=== PATIENT | male | born 1985 | race Caucasian/White ===

== ENCOUNTER 2017-11-05 14:30 | Outpatient (RCR) | payer MEDICAID, SELFPAY ==
--- NOTE | 2017-07-23 17:02 | HP.PTEVAL ---
Patient's Visit Information JONATAN LAMBERT is a 31 year old M referred to Physical Therapy by MELO MORGAN with a diagnosis of STRAIN OF MUSCLES FASCIA/TENDON THORACIC-SACRAL,LUMBAR DISC HERNIATION. Date of Evaluation: 07/23/17 Physical Therapist: Trevin Aguilar PT, - Visit Plan Frequency: 3x /Week Duration: 4 Weeks Plan: Patient benifit from PT for DLS,POSTURAL EX'S,LUMBAR FLEXABLITY ,GENERAL CONDTIONING. INTIALLY BENFIT FROM AQUATIC THERAPY THEN TRANSITION TO LAND BASED EX'S. MAY NOT BE ABLE TO TOLERATE WORK SIMULATION ACTIVITIES - Subjective Subjective: This 31 y/o [facility] pain since September 2015. 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 Patient had immediated. Grace FRASER eventually had MRI showed HNP . Patient intially had PT ,tried injections didnt help. Thus underwent s/p lumbar discectomy L5-S1 2016. Patient then had PT made back pain worse. Patient is in pain management ,and lumbar injection which decreases symptom by 50%. Patient is to start [facility]. Patient has no approval for FCE. Loaction symmtrical thoracic -lumbar symmtrical with occassionlly radicular symptoms left leg. Denies parathesia/tingling. Coughing/sneezing + with pain. Bowel/bladder giooid. Symptoms worse with bending ,lifting ,walking,standing 5 min , siiting one hour.Symptoms better with some stretches/TENS. Pain affects sleeping. Patient pain affects quality of life ADL'S and housework tasks. SOCIAL: . VOCATION: NOT WORKING - Pain Bilateral Back Pain Intensity (Out of 10): 6 Pain Intensity Range: 10 Left Lower Extremity Pain Intensity (Out of 10): 0 Pain Intensity Range: 10 - Objective POSTURE: mild foward posure guarded. GAIT: mild foward antalgic gait left side slow rosalinda. NEURO: denies parathesia /tingling ,reflexes L3-4,L4-5,L5-S1 2/3. FLEXABLITY: hams mod tight. SYMMTRIES: align. MMT: quads 4-/5,hams 4/5,hip flexion 4-/5,ankle 4/5 ,great toe extensors 4/5. LUMBAR ROM: flexion mod loss pain,extension mod/severe pain,side glides mod. PALAPTION: tender paraspinals - Special Tests L/S Slump test left side: Positive L/S Slump test right side: Positive L/S Left Straight Leg Raise: Positive L/S Right Straight Leg Raise: Positive Lumbar Standing: Flexion - Mechanical Response: No effect Lumbar Standing: Flexion - Symptoms During Testing: Increases Lumbar Standing: Flexion - Symptoms After Testing: Worse Lumbar Standing: Extension - Mechanical Response: No effect Lumbar Standing: Extension - Symptoms During Testing: Increases Lumbar Standing: Extension - Symptoms After Testing: Worse Lumbar Standing: Right Side Glides - Mechanical Response: No effect Lumbar Standing: Right Side [place] - Symptoms During Testing: No effect Lumbar Standing: Right Side [place] - Symptoms After Testing: No effect Lumbar Standing: Left Side [place] - Mechanical Response: No effect Lumbar Standing: Left Side [place] - Symptoms During Testing: No effect Lumbar Standing: Left Side [place] - Symptoms After Testing: No effect Lumbar Lying: Flexion - Mechanical Response: No effect Lumbar Lying: Flexion - Symptoms During Testing: Increases Lumbar Lying: Flexion - Symptoms After Testing: Worse - Goals Goal 1:: Independant with HEP Goal Time Frame: 4-6 Weeks Goal 2:: Independant with posture/boy mechanics Goal Time Frame: 4-6 Weeks Goal 3:: Patient decrease pain in lumbar spine by 50% or greater to improve function with walking standing and ADL'S Goal Time Frame: 4-6 Weeks Goal 4:: Patient improve lumbar ROM for function of recovery Goal Time Frame: 4-6 Weeks Goal 5:: Patient increase leg strength to 4/5 to improve gait and ADL'S Goal Time Frame: 4-6 Weeks Goal 6:: Patient be a ble to perform ADL's and light housework tasks with min limiations Goal Time Frame: 4-6 Weeks - Rehabilitation Potential Physical Therapy Diagnosis: This patient has had lumbar disectomy September 2016 with pain never improve but since pain mangment leg pain musch improved with less leg pain . Patient has impairments with decrease ROM loss,pain weakness left leg ,impared gait which impairs ADL's thus benifit from skilled PT Rehabilitation Potential: Good - Anticipated Interventions Patient/Client Instruction: Educate patient on: Condition For the Purpose of:: To decrease pain, To increase ROM, To improve muscle performance and motor function, To improve ability to perform ADL's, To increase tolerance to activity/condition/position, To improve performance and independence with ADL's, To improve ability of physical actions for home/community/work/leisure, To improve health of tissue, To decrease soft tissue restriction, To increase flexibility/ROM, To reduce risk of recurrence, To improve health and function, To prevent re-injury, To improve ability to perform tasks related to life management Therapeutic Exercise to Include: Strength training, Endurance training, Body mechanics, Postural training, Flexibilty training, Dynamic Lumbar Stabilization For the Purpose of:: To decrease pain, To increase ROM, To improve muscle performance and motor function, To improve ability to perform ADL's, To increase tolerance to activity/condition/position, To improve performance and independence with ADL's, To improve ability of physical actions for home/community/work/leisure, To improve health of tissue, To decrease soft tissue restriction, To increase flexibility/ROM, To reduce risk of recurrence, To improve health and function, To prevent re-injury, To improve ability to perform tasks related to life management TENS: Yes IF ES: Yes Cryotherapy (ice pack, ice massage): Yes Thermo therapy (hot pack): Yes Ultrasound (thermal/non thermal): Yes For the Purpose of:: To decrease pain, To decrease swelling/inflammation, To improve nutrient delivery to tissue, To increase oxygenation perfusion, To improve health of tissue, To decrease soft tissue restriction Thank you for the opportunity to evaluate your patient. For Medicare and Medicare HMO plans, please review the plan of care and approve it. It will need to be FAXED BACK to us at [phone] for Medicare purposes. Please let me know if there are questions or concerns regarding this plan of care. Physician Signature: Date:
--- NOTE | 2017-12-13 10:42 | HP.PTDCSUM_ITS ---
HP - PT D/C Summary It has been my pleasure to treat JONATAN LAMBERT under orders from MELO VILLAGRAN, for the diagnosis of STRAIN OF MUSCLES FASCIA/TENDON THORACIC-SACRAL ,LUMBAR DISC HERNIATION for a total of 18 visit(s). Discharge Date: 11/05/17 Please see the following information for a summary of their discharge status. - Subjective Subjective: Pt states that he knows he has made functional improvements since starting therapy. He still does have continued low back and just a few days ago started noticing posterior L LE symptoms. Per pt, he spoke with child welfare caseworker and will start what sounds like work reassignment training next week. Plans to contiune exercises on his own at [facility]. - Pain Bilateral Back Pain Intensity (Out of 10): 6 Left Lower Extremity Pain Intensity (Out of 10): 0 - Overall Improvement % Improvement: 40 - Objective Objective/Function: Pt reports 40% improvement in function and pain. He has met 5/6 PT goals. He has made objective improvements with ROM and strength. Lumbar ROM flexion 50%, extension 25%, B LF 50%. Gross strength: R LE 4+/5, L LE 4/5. Pt has been compliant with his PT sessions but several comments made during treatments questions his motivation level. He also sounds like he is starting work reassignment training next week. Pt will be discharged. - Goals Goal 1:: Independant with HEP Goal Progress: Goal Met Goal 2:: Independant with posture/body mechanics Goal Progress: Goal Met Goal 3:: Patient decrease pain in lumbar spine by 50% or greater to improve function with walking standing and ADL'S Goal Progress: Progressing Goal 4:: Patient improve lumbar ROM for function of recovery Goal Progress: Goal Met Goal 5:: Patient increase leg strength to 4/5 to improve gait and ADL'S Goal Progress: Goal Met Goal 6:: Patient be able to perform ADL's and light housework tasks with min limitations Goal Progress: Goal Met - Plan Plan: Discharge with [facility]CE planned for next week. - D/C Information Discharge Comments: fce If there are questions or concerns regarding this patient's physical therapy, please feel free to call me at [phone]. Thank you for the referral of this patient. Sincerely, Trevin Aguilar, PT,
== END 2017-11-05 19:00 | disposition home or self-care (01) ==
LOC: PT 14:30
DX: S39.012D Strain of muscle, fascia and tendon of lower back, subsequent encounter (principal); M51.27 Other intervertebral disc displacement, lumbosacral region; F32.1 Major depressive disorder, single episode, moderate
CPT/HCPCS: 97110; 97162; 97530

== ENCOUNTER 2017-11-08 14:22 | Outpatient (RCR) | payer OTHER, SELFPAY ==
--- NOTE | 2017-11-08 17:17 | HP.FCE ---
HP OT Functional Capacity Eval - Task Lift Floor (Occasional 1-33% of Day): 20# Floor (Frequent 34-66% of Day): 10# Floor (Constant 67-100% of Day): NA Floor PDL: Light Knee (Occasional 1-33% of Day): 20# Knee (Frequent 34-66% of Day): 10# Knee (Constant 67-100% of Day): NA Knee PDL: Light Waist (Occasional 1-33% of Day): 20# Waist (Frequent 34-66% of Day): 10# Waist (Constant 67-100% of Day): NA Waist PDL: Light Shoulder (Occasional 1-33% of Day): 20# Shoulder (Frequent 34-66% of Day): 10# Shoulder (Constant 67-100% of Day): NA Shoulder PDL: Light Overhead (Occasional 1-33% of Day): 15# Overhead (Frequent 34-66% of Day): 8# Overhead (Constant 67-100% of Day): NA Overhead PDL: Sedentary-Light - Reference Duration Sedentary Sedentary Light Light Light Medium Medium Medium Heavy Very Heavy Heavy Occasional (0-33% of day) Frequent (34-66% of day) Constant (67-100% of day) 10 # Negligible Negligible 15 # 8 # Negligible 20 # 10# Negli. 35 # 18 # 7 # 50 # 25 # 10 # 75 # 100 # >100 # 38 # 50 # >50 # 15 # 20 # >20 # - Patient Information Height: 1.75 m Weight:: 142.882 kg Hand Dominance: right - Medical History Medical History Including Restrictions: Pt states he was in good health until his low back injury September 28, 2015. 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 Patient had worked his shift and then went to ER. X-rays taken and pt states he was dx with a muscle strain. PT states about 6 months for MRI showed herniated disc at L5, S1. . Patient intially had PT, tried injections didn't help. Thus underwent s/p lumbar discectomy L5-S1 2016. Patient then had PT made back pain worse. Patient is in pain management ,and lumbar injection which decreases symptom by 50-70% depending on the day. Pt states his doctors would like to know how much pt can lift. pt states his injection lasted the longest this time. - Diagnoses Diagnoses: Strain of muscle fascia. other intervertervral disc displacment lumbo sacral. depression disorder. S/P discectomy - Symptoms Symptoms: Pain low back. Muscle tightness. Pain down left leg. fatigue. lack of sleep. irritabiilty - Pain Pain: Pt states his current back pain is 6/10. Pt states he has not taken pain medication today. Pt states he does have a tens unit that helps him mtg his pain. Pt states he does use the tens unit every day for one hour two times a day. Pt states pain increases with activity. - Work History Work History: Pt states he was working at [employer] for a few months prior to his injury. 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 Pt states job description possibly stated llift around 100#. 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 This was mostly physically demanding job. - Behavioral Behavioral: pt was cooroperative throughout the evaluation. - ADLS ADLS: Pt states he lives with his and his mother. pt states they live in a two story home with one entry step. Pt states his bedroom is on the 2nd floor and bathroom on the main floor. Pt states he does have railing on both sides going to 2nd floor. pt state he is ind. with shower, and with dressing his does need to assist pt with socks and shoes. Pt states he does assist with cooking at a modified level (sit and stand as needed). Pts does the cleaning and laundry. He does not drive due to medication. pt states he and his do the shopping together but he does use the electric scooter. Pt states his and mother perform the yard care. - Physical Examination ROM: pt demo with limited back flextion/extension, and trunk rotation. All other ROM WFL Strength: Pt demo bilateral UB MMT 4/5. Pt demo bilateral LB MMT grossly throughout 4-/5- pt stated pain with LB resistance. Right Detention Attendant Strength Average: 80.00 Right Detention Attendant Strength Percentile: 6.7% Left Detention Attendant Strength Average: 90.00 Left Detention Attendant Strength Percentile: 19% Right Lateral Pinch Average: 22.00 Right Lateral Pinch Percentile: 50% Left Lateral Pinch Average: 18.00 Left Lateral Pinch Percentile: 18% Right Tripod Pinch Average: 18.00 Right Tripod Pinch Percentile: 25% Left Tripod Pinch Average: 14.66 Left Tripod Pinch Percentile: 10% Sensation: Denies sensation loss Fine Motor: Denies fine motor deficits Balance: no loss of balance noted during the evaluation. - Non Material Handling Activities Bending: pt demo the ability to bend forward three times and then 5 times. Pt stated his low back pain increased to 8/10. pt was unble to bend forward ten times or ten times rapidly. pt can bend forward on a low occasional level. Squatting: Pt demo the ability to squat three times with external support. He reported low back pain 8/10 during task. Pt can squat on a low occasional basis. Kneeling: pt demo the ability to kneel one time with external support. Pt reported pain 7.5/10. Pt can kneel on a low occasional basis. Reaching out/up: pt demo the ability to reach out/up three times, ten times and ten times rapidly. Pt completed this while sitting. Pt can perform on a occasional basis due to pts pain at rest is 7/10. Walking: Pt demo an antalgic gait pattern and ambulated for Standing: Pt report he can stand to shower for 15 min. In clinic pt demo the ability to stand 4 min. Sitting: Pt demo the ability to sit for 35 min with no expressed or apparent discomfort. Climbing Stairs: pt ascended and decended ten steps with use of reciprical step pattern and use of both hand rails. - Dynamic Occasional Lifting Capacity Floor Lift: pt demo the ability to lift 20# maximally from this level. Knee Lift: pt demo the ability to lift 20# maximally from this level. Waist Lift: pt demo the ability to lift 20# maximally from this level. Shoulder Lift: pt demo the ability to lift 20# maximally from this level. Overhead Lift: pt demo the ability to lift 15# maximally from this level. Carrying: pt demo the ability to carry 15# for 30 feet. Comments: pt demo increase pain with lift tasks 9/10, but with sitting pain decreased to 8/10 .
--- NOTE | 2017-11-08 17:21 | HP.OTFCE_ITS ---
HP OT Functional Capacity Eval - Task Lift Floor (Occasional 1-33% of Day): 20# Floor (Frequent 34-66% of Day): 10# Floor (Constant 67-100% of Day): NA Floor PDL: Light Knee (Occasional 1-33% of Day): 20# Knee (Frequent 34-66% of Day): 10# Knee (Constant 67-100% of Day): NA Knee PDL: Light Waist (Occasional 1-33% of Day): 20# Waist (Frequent 34-66% of Day): 10# Waist (Constant 67-100% of Day): NA Waist PDL: Light Shoulder (Occasional 1-33% of Day): 20# Shoulder (Frequent 34-66% of Day): 10# Shoulder (Constant 67-100% of Day): NA Shoulder PDL: Light Overhead (Occasional 1-33% of Day): 15# Overhead (Frequent 34-66% of Day): 8# Overhead (Constant 67-100% of Day): NA Overhead PDL: Sedentary-Light - Work Activity/Posture Bending: Occasional Ability (1-33% of day) Comments: Low occasional ability Squatting: Occasional Ability (1-33% of day) Comments: Low occasional ability Kneeling: Occasional Ability (1-33% of day) Comments: Low occasional ability Reaching out: Occasional Ability (1-33% of day) Comments: due to pain level Reaching up: Occasional Ability (1-33% of day) Comments: due to pain level Sitting: Frequent Ability (34-66% of day) Comments: with shift of body weight Walking: Occasional Ability (1-33% of day) Comments: Low occasional ability Standing: Occasional Ability (1-33% of day) Comments: low occasional ability - Reference Duration Sedentary Sedentary Light Light Light Medium Medium Medium Heavy Very Heavy Heavy Occasional (0-33% of day) Frequent (34-66% of day) Constant (67-100% of day) 10 # Negligible Negligible 15 # 8 # Negligible 20 # 10# Negli. 35 # 18 # 7 # 50 # 25 # 10 # 75 # 100 # >100 # 38 # 50 # >50 # 15 # 20 # >20 # - Patient Information Height: 1.75 m Weight:: 142.882 kg Hand Dominance: right - Medical History Medical History Including Restrictions: Pt states he was in good health until his low back injury September 28, 2015. 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 Patient had worked his shift and then went to ER. X-rays taken and pt states he was dx with a muscle strain. PT states about 6 months for MRI showed herniated disc at L5, S1. . Patient intially had PT, tried injections didn't help. Thus underwent s/p lumbar discectomy L5-S1 2016. Patient then had PT made back pain worse. Patient is in pain management ,and lumbar injection which decreases symptom by 50-70% depending on the day. Pt states his doctors would like to know how much pt can lift. pt states his injection lasted the longest this time. - Diagnoses Diagnoses: Strain of muscle fascia. other intervertervral disc displacment lumbo sacral. depression disorder. S/P discectomy - Symptoms Symptoms: Pain low back. Muscle tightness. Pain down left leg. fatigue. lack of sleep. irritabiilty - Pain Pain: Pt states his current back pain is 6/10. Pt states he has not taken pain medication today. Pt states he does have a tens unit that helps him mtg his pain. Pt states he does use the tens unit every day for one hour two times a day. Pt states pain increases with activity. - Work History Work History: Pt states he was working at [employer] for a few months prior to his injury. 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 Pt states job description possibly stated llift around 100 #. 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 This was mostly physically demanding job. - Behavioral Behavioral: pt was cooroperative throughout the evaluation. - ADLS ADLS: Pt states he lives with his and his mother. pt states they live in a two story home with one entry step. Pt states his bedroom is on the 2nd floor and bathroom on the main floor. Pt states he does have railing on both sides going to 2nd floor. pt state he is ind. with shower, and with dressing his does need to assist pt with socks and shoes. Pt states he does assist with cooking at a modified level (sit and stand as needed). Pts does the cleaning and laundry. He does not drive due to medication. pt states he and his do the shopping together but he does use the electric scooter. Pt states his and mother perform the yard care. - Physical Examination ROM: pt demo with limited back flextion/extension, and trunk rotation. All other ROM WFL Strength: Pt demo bilateral UB MMT 4/5. Pt demo bilateral LB MMT grossly throughout 4-/5- pt stated pain with LB resistance. Right Fermenter Champagne Strength Average: 80.00 Right Fermenter Champagne Strength Percentile: 6.7% Left Fermenter Champagne Strength Average: 90.00 Left Fermenter Champagne Strength Percentile: 19% Right Lateral Pinch Average: 22.00 Right Lateral Pinch Percentile: 50% Left Lateral Pinch Average: 18.00 Left Lateral Pinch Percentile: 18% Right Tripod Pinch Average: 18.00 Right Tripod Pinch Percentile: 25% Left Tripod Pinch Average: 14.66 Left Tripod Pinch Percentile: 10% Sensation: Denies sensation loss Fine Motor: Denies fine motor deficits Balance: no loss of balance noted during the evaluation. - Non Material Handling Activities Bending: pt demo the ability to bend forward three times and then 5 times. Pt stated his low back pain increased to 8/10. pt was unble to bend forward ten times or ten times rapidly. pt can bend forward on a low occasional level. Squatting: Pt demo the ability to squat three times with external support. He reported low back pain 8/10 during task. Pt can squat on a low occasional basis. Kneeling: pt demo the ability to kneel one time with external support. Pt reported pain 7.5/10. Pt can kneel on a low occasional basis. Reaching out/up: pt demo the ability to reach out/up three times, ten times and ten times rapidly. Pt completed this while sitting. Pt can perform on a occasional basis due to pts pain at rest is 7/10. Walking: Pt demo an antalgic gait pattern and ambulated for 4 min and 20 seconds. pt can ambulate on a low occasional basis. Standing: Pt report he can stand to shower for 15 min. In clinic pt demo the ability to stand 4 min. pt can stand on a low occasional basis. Sitting: Pt demo the ability to sit for 35 min with no expressed or apparent discomfort. pt can sit on a frequent basis with shift of body weight. Climbing Stairs: pt ascended and decended ten steps with use of reciprical step pattern and use of both hand rails. - Dynamic Occasional Lifting Capacity Floor Lift: pt demo the ability to lift 20# maximally from this level. Knee Lift: pt demo the ability to lift 20# maximally from this level. Waist Lift: pt demo the ability to lift 20# maximally from this level. Shoulder Lift: pt demo the ability to lift 20# maximally from this level. Overhead Lift: pt demo the ability to lift 15# maximally from this level. Carrying: pt demo the ability to carry 15# for 30 feet. Comments: pt demo increase pain with lift tasks 9/10, but with sitting pain decreased to 8/10 .
== END 2017-11-08 19:00 | disposition home or self-care (01) ==
LOC: OT 14:22
DX: S39.012D Strain of muscle, fascia and tendon of lower back, subsequent encounter (principal); M51.27 Other intervertebral disc displacement, lumbosacral region; F32.1 Major depressive disorder, single episode, moderate
CPT/HCPCS: 97750

== ENCOUNTER 2019-04-19 15:30 | Outpatient (RCR) | payer OTHER, MEDICAID, SELFPAY ==
[2018-12-23 08:17] VITALS: BMI 44.3
--- NOTE | 2019-03-29 15:50 | HP.PTEVAL_ITS ---
Patient's Visit Information JONATAN LAMBERT is a 33 year old M referred to Physical Therapy by JOSE ANGEL TELLEZ with a diagnosis of INTERVERTEBRAL DISC DISPLACEMENT, LUMBAR REGION. Date of Evaluation: 03/29/19 Physical Therapist: Patricia Smith PT, Cert MDT - Visit Plan Frequency: 2-3x /Week Duration: 4-6 Weeks Plan: *RESTICTIONS - SEDINTARY WORK ONLY. NO LIFTING OVER-HEAD. NO LIFTING > 15 LBS. AQUATIC THERAPY FOR PAIN RELEIF, POSTURE CORRECTION/STRENGTHENING, INSTRUCTION IN APPROPRIATE BODY MECHANICS AND ACTIVITY MODIFICATIONS. DLS STARTING WITH A NEUTRAL SPINE PROGRESSING ROM TOLERATED. JAKE LE ROM, STRETCHING AND STRENGTHENING. HEP INSTRUCTION. - Subjective Findings: Work/Leisure: UNEMPLOYEED. OFF WORK SINCE JUN 2018 DUE TO BACK PAIN. Disability: NO BUT HAS APPLIED. Present symptoms: RIGHT BACK, JAKE LOW BACK, RIGHT THIGH, LEG, AND ANKLE PAIN. LLE NUMBNESS AND TINGLING. CONSTANT. Present since: 3 YEARS AGO - 2016. Pain Scale: WORST 8/10, LEAST 3/10. Currently: 5/10. 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 Symptoms at onset: MID TO LOW BACK PAIN. Worse: ANY MVMT OR ACTIVITY. SITTING UP. DAILY THINGS. Better: THE NEW MEDICATION - MEDICAL CANABIS. Disturbed sleep: YES. Previous history/Previous treatment: NO BACK PROBLEMS PRIOR TO 2016. SINCE 2016 HAS TRIED MEDICATIONS, PHYSICAL THERAPY NUMEROUS TIMES, CATHY'S NUMBEROUS TIMES, SURGERY 2017 - MICRODISCECTOMY - DR. CARDONA. Coughing/sneezing/straining: POSITIVE. Gait: SOMETIMES HAS TO USE A CANE BUT NOT MUCH LATELY. PUTTING LEFT LEG DOWN CAUSES SHOOTING PAIN TO OR FROM BACK AND CAUSES LIMP. I CAN'T WALK TOO FAR OR TOO FAST. Difficulty initiating urinatin: NO. Accidents: NO OTHERS. Unexplained weight loss: NO. Imaging: RECENT LUMBAR MRI - NOTHING NEW. RECENT NCT - NORMAL. PAPERWORK FROM PAIN MGMT STATES - MILD DISC OSTEOPHYTIC BULGE AT L5S1 WITHOUT SIGNIFICANT PROTRUSION. PMH: UNREMARKABLE. OTHER: [facility] HERE AT LAST YEAR. - Objective Sitting/Standing Posture: POOR. SLOUCHED WITH FORWARD HEAD AND ROUNDED SHOULDERS. Lordosis: NORMAL. Lateral shift: NO. Relevant shift: N/A. Active Correction of posture: BETTER. Other Observations: INDEP GAIT INTO PT WITHOUT LOB AND WITHOUT ASSISTIVE DEVICE. DECREASED CADANCE AND MILD LIMP ON LLE. ABLE TO TRANSFER FROM SIT TO STAND WITHOUT UE ASSIST. Motor deficit: RIGHT LE 5/5 WITH MMT'ING. Sensory deficit: DECREASED LIGHT TOUCH SENSATION LLE (RECENT NCT). ROM deficit: TIGHT BI LE HIP FLEXORS, HS'S AND GASTROC SOLEUS COMPLEX'S LEFT > RIGHT. Reflexes: 3/3 JAKE LE'S. Dural Signs: POSITIVE LLE. Lumbar mvmt loss: flex - MOD. ext - FARZANA. R SG - MOD. L SG - FARZANA. PATIENT C/O INCREASED PAIN WITH LUMBAR ROM TESTING ALL PLANES. Core strength: POOR. Palpation: NO ACUTE LUMBAR TENDERNESS. - Goals Goal 1:: DECREASE C/O BACK AND LLE SX'S. Goal Time Frame: 4-6 Weeks Goal 2:: IMPROVE PERSONAL CARE, LIFTING, WALKING, SITTING, STANDING, SLEEP, SOCIAL LIFE, TRAVEL AND HOMEMAKING FUNCTION Goal Time Frame: 4-6 Weeks Goal 3:: INSTRUCT IN PROPHYLAXIS Goal Time Frame: 4-6 Weeks - Rehabilitation Potential Rehabilitation Potential: Fair - Anticipated Interventions Patient/Client Instruction: Educate patient on: Condition, Plan of Care, Risk Factors, Benefits of Fitness Program For the Purpose of:: To improve self management Therapeutic Exercise to Include: Strength training, Body mechanics, Postural training, Flexibilty training, Gait and locomotor training, In an aquatic setting, Dynamic Lumbar Stabilization For the Purpose of:: To decrease pain, To increase ROM, To improve muscle performance and motor function, To increase tolerance to activity/condition/position, To improve ability of physical actions for home/community/work/leisure, To improve gait and locomotor functions Thank you for the opportunity to evaluate your patient. For Medicare and Medicare HMO plans, please review the plan of care and approve it. It will need to be FAXED BACK to us at [phone] for Medicare purposes. For Medicare only, by signing this I certify the plan of care. Please let me know if there are questions or concerns regarding this plan of care. Physician Signature:___ Date:
--- NOTE | 2019-06-21 17:38 | HP.PTDCNRP_ITS ---
HP - Discharge Summary (1) - Patient Information JONATAN LAMBERT was seen in my office for initial evaluation on 03/29/19. The following Plan of Care was established for this patient: Initial Frequency: 2-3x /Week Initial Duration: 4-6 Weeks - Anticipated Interventions Patient/Client Instruction: Educate patient on: Condition, Plan of Care, Risk Factors, Benefits of Fitness Program For the Purpose of:: To improve self management Therapeutic Exercise to Include: Strength training, Body mechanics, Postural training, Flexibilty training, Gait and locomotor training, In an aquatic set ting, Dynamic Lumbar Stabilization For the Purpose of:: To decrease pain, To increase ROM, To improve muscle performance and motor function, To increase tolerance to activity /condition/position, To improve ability of physical actions for home/community/work/leisure, To improve gait and locomotor functions This patient was last seen in our office 04/19/19. Pertinent comments regarding their Physical therapy will appear below: This patient has not returned to Physical Therapy and is appropriate to return to MD for further follow-up as needed. At this point I will be discontinuing this patient from physical therapy. I would be happy to see this patient again in the future if found appropriate by the physician. Thank you! Patricia Smith, PT, Cert MDT
== END 2019-04-19 19:00 | disposition home or self-care (01) ==
LOC: PT 15:30
PROVIDERS: Family Provider Nurse Practitioner Family; PCP Nurse Practitioner Family
DX: M51.27 Other intervertebral disc displacement, lumbosacral region (principal)
CPT/HCPCS: 97113; 97162; 97530